=== PATIENT | female | born 1990 | race American Indian/Alaskan Native ===

== ENCOUNTER 2017-09-27 07:01 | Inpatient (IN) | payer OTHER ==
[2017-09-27 08:08] LABS: Alanine Aminotransferase 13 units/L (7-56); Albumin 4.2 g/dL (3.9-5); BUN/Creatinine Ratio 16; Blood Urea Nitrogen 11 mg/dL (7-17); Calcium 9.2 mg/dL (8.4-10.2); Hemolysis Index 4
[2017-09-27 08:21] LABS: Basophils % (Auto) 0.1 % (0.0-1.8); Eosinophils % (Auto) 0.3 % (0.0-4.3); Hematocrit 39.8 % (30.3-42.9); Hemoglobin 12.7 gm/dl (10.1-14.3); Lymphocytes # (Auto) 2.2 K/mm3 (1.2-5.4); Lymphocytes % (Auto) 16.6 % (13.4-35.0); Mean Corpuscular HGB Conc 32 % (30-34); Mean Corpuscular Volume 81 fl (79-97); Monocytes # (Auto) 0.9 K/mm3 (0.0-0.8); Monocytes % (Auto) 6.5 % (0.0-7.3); Platelet Count 269 K/mm3 (140-440); Red Blood Count 4.93 M/mm3 (3.65-5.03); Red Cell Distribution Width 14.5 % (13.2-15.2)
[2017-09-27 08:27] LABS: Mean Corpuscular Hemoglobin 26 pg (28-32)
[2017-09-27 08:51] LABS: HCG Qualitative,Urine Negative (Negative)
[2017-09-27 08:53] LABS: Bacteria,Urine 1+ /HPF (Negative); Bilirubin,Urine NEG (Negative); Blood,Urine SM (Negative); Color,Urine Yellow (Yellow); Mucus,Urine 1+ /HPF; Protein,Urine <15 mg/dL mg/dL (Negative); Urobilinogen,Urine < 2.0 mg/dL (<2.0)
[2017-09-27] MEDS ORDERED: ZOFRAN IV ONE (11:21)
[2017-09-27] MEDS ORDERED: NACL 0.9% 1000 ML 1,000 ML IV ONE ×2 (11:21→13:35)
[2017-09-27] MEDS ORDERED: TORADOL IV ONE (11:21)
[2017-09-27] MEDS ORDERED: PEPCID IV ONE (11:21)
--- NOTE | 2017-09-27 11:21 | Emergency Department Report ---
Blank Doc - Documentation Documentation: Patient is a 27-year-old female who has a history of frequent UTIs who is presenting with 2-3 days of central abdominal pain does radiate into the right lower quadrant as well as nausea. Patient does have some frequent urination no dysuria. Patient denies vaginal discharge. On focused physical exam patient does have some right lower quadrant tenderness but no rebound. Laboratory studies were reviewed and patient does have moderate leuk esterase as well as a few WBCs in her urine suggestive of urinary tract infection however because of the patient's tenderness and CT will be done as well to rule out pyelonephritis and appendicitis. Patient does have elevated white counts time.
--- NOTE | 2017-09-27 13:29 | Cat Scan Report ---
FINAL REPORT EXAM: CT ABDOMEN PELVIS W CON HISTORY: RLQ pain TECHNIQUE: Spiral CT scanning of the abdomen and pelvis after the uneventful administration of IV contrast. Multiplanar reformations. 100 mL Omnipaque IV. PRIORS: None. FINDINGS: Abdomen: Visualized lung bases grossly unremarkable. No radiopaque gallstones. Liver without significant abnormality. Spleen without significant abnormality. Pancreas without significant abnormality. Punctate calcification noted in the right kidney measuring 1-2 mm, without significant hydronephrosis. Left kidney grossly unremarkable. Adrenal glands without significant abnormality. Pelvis: Appendix is enlarged and fluid-filled measuring up to 10 mm in diameter, with wall thickening and enhancement, as well as periappendiceal fat stranding. Some wall and fold thickening in the adjacent cecum probably reactive. Bowel grossly unremarkable. Very small amount of nonspecific, free fluid in the pelvis. No discrete abscess. Abdominal aorta non-aneurysmal. Possible involuting or hemorrhagic follicle or cyst in the right ovary measuring approximately 1.6 cm. Mild levoconvex curvature of lumbar spine. IMPRESSION: 1. Findings compatible with acute appendicitis. Clinical correlation and followup suggested. 2. Punctate, nonobstructing right renal calcification. No significant right hydronephrosis. 3. Possible physiologic cystic change in the right ovary, and sequelae of ovarian follicle or cyst rupture. Dr. Dumont discussed results with PA, named Kaden Tomlin, on 27 September 2017 at approximately 1318 hours EST.
[2017-09-27] MEDS ORDERED: DILAUDID IV ONE (13:35)
--- NOTE | 2017-09-27 13:41 | Emergency Department Report ---
ED Abdominal Pain HPI - General Chief Complaint: Abdominal Pain Stated Complaint: ABDOMINAL PAIN Time Seen by Provider: 09/27/17 11:14 Source: patient Mode of arrival: Ambulatory Limitations: No Limitations - History of Present Illness Initial Comments: 27year-old female past medical history interstitial cystitis history of frequent UTIs presents with complaint of several days of periumbilical pain radiating to right lower quadrant. Some associated nausea. Patient is awake alert and oriented 3 does not appear to be in acute distress. Patient did state she had some suggestive chills. MD Complaint: abdominal pain Onset/Timin -: days(s) Location: periumbilical, RLQ Radiation: RLQ Migration to: periumbilical, RLQ Severity: moderate Severity scale (0 -10): 7 Quality: aching, sharp Consistency: intermittent Associated Symptoms: nausea, chills - Related Data LMP Date: 08/26/17 Allergies Allergy/AdvReac Type Severity Reaction Status Date / Time morphine Allergy Rash Verified 09/27/17 07:29 ED Review of Systems ROS: Stated complaint: ABDOMINAL PAIN Other details as noted in HPI Constitutional: chills. denies: fever Eyes: denies: eye pain, eye discharge, vision change ENT: denies: ear pain, throat pain Respiratory: denies: cough, shortness of breath, wheezing Cardiovascular: denies: chest pain, palpitations Endocrine: no symptoms reported Gastrointestinal: abdominal pain, nausea. denies: diarrhea Genitourinary: denies: urgency, dysuria, discharge Musculoskeletal: denies: back pain, joint swelling, arthralgia Skin: denies: rash, lesions Neurological: denies: headache, weakness, paresthesias Psychiatric: denies: anxiety, depression Hematological/Lymphatic: denies: easy bleeding, easy bruising ED Past Medical Hx - Past Medical History Additional medical history: cystitis - Social History Smoking Status: Never Smoker ED Physical Exam - General Limitations: No Limitations General appearance: alert, in no apparent distress - Head Head exam: Present: atraumatic, normocephalic - Eye Eye exam: Present: normal appearance, PERRL, EOMI - ENT ENT exam: Present: mucous membranes moist - Neck Neck exam: Present: normal inspection - Respiratory Respiratory exam: Present: normal lung sounds bilaterally. Absent: respiratory distress - Cardiovascular Cardiovascular Exam: Present: regular rate, normal rhythm. Absent: systolic murmur, diastolic murmur, rubs, gallop - GI/Abdominal GI/Abdominal exam: Present: tenderness (some periumbilical tenderness and right lower quadrant tenderness), normal bowel sounds - Extremities Exam Extremities exam: Present: normal inspection - Back Exam Back exam: Present: normal inspection - Neurological Exam Neurological exam: Present: alert, oriented X3 - Psychiatric Psychiatric exam: Present: normal affect, normal mood - Skin Skin exam: Present: warm, dry, intact, normal color. Absent: rash ED Course Vital Signs 09/27/17 09/27/17 09/27/17 07:23 11:48 12:10 Temperature 98.6 F Pulse Rate 75 Respiratory 17 20 18 Rate Blood Pressure 123/72 Blood Pressure [Right] O2 Sat by Pulse 98 Oximetry 09/27/17 09/27/17 09/27/17 15:01 15:19 15:25 Temperature 98.6 F Pulse Rate 72 Respiratory 18 18 18 Rate Blood Pressure Blood Pressure 128/70 [Right] O2 Sat by Pulse 98 99 Oximetry ED Medical Decision Making - Lab Data Result diagrams: 09/27/17 07:32 09/27/17 07:32 - Medical Decision Making A/P: Acute appendicitis 1-case discussed with surgeon for admission 2-IV fluid, nothing by mouth, Zosyn 3-patient made aware of clinical plan and is in agreement Critical care attestation.: If time is entered above; I have spent that time in minutes in the direct care of this critically ill patient, excluding procedure time. ED Disposition Clinical Impression: Acute appendicitis Qualifiers: Acute appendicitis type: unspecified acute appendicitis type Qualified Code(s) : K35.80 - Unspecified acute appendicitis Abdominal pain Qualifiers: Abdominal location: periumbilical Qualified Code(s): R10.33 - Periumbilical pain Disposition: OP ADMIT IP TO THIS HOSP Is pt being admited?: Yes Does the pt Need Aspirin: No Condition: Stable Instructions: Abdominal Pain (ED) Referrals: PRIMARY CARE, [Primary Care Provider] - 3-5 Days
[2017-09-27] MEDS ORDERED: ZOSYN/NS 4.5GM/100ML 4.5 GM/100 ML VIAL IV SCH (14:00)
[2017-09-27] MEDS ORDERED: NACL 0.9% 1000 ML 1,000 ML ONE ×2 (16:58→18:55)
[2017-09-27] MEDS ORDERED: MARCAINE 0.5% 30 ML INFILTRATI ONE (17:25)
[2017-09-27] MEDS ORDERED: XYLOCAINE 1% 20 mL ONE (17:25)
[2017-09-27] MEDS ORDERED: XYLOCAINE MPF 2% ONE (17:36)
[2017-09-27] MEDS ORDERED: DIPRIVAN 10 MG/ML IV ONE (17:36)
[2017-09-27] MEDS ORDERED: DILAUDID ONE (17:36)
[2017-09-27] MEDS ORDERED: ZEMURON IV ONE (17:36)
[2017-09-27] MEDS ORDERED: NACL 0.9% IR ONE (17:45)
[2017-09-27] MEDS ORDERED: XYLOCAINE 1% 20 mL INFILTRATI ONE (17:45)
[2017-09-27] MEDS ORDERED: MARCAINE 0.5% INFILTRATI ONE (17:45)
--- NOTE | 2017-09-27 18:07 | Anesthesia Consultation ---
Anesthesia Consult and Med Hx Date of service: 09/27/17 - Airway Anesthetic Teeth Evaluation: Good ROM Head & Neck: Adequate Mental/Hyoid Distance: Adequate Mallampati Class: Class II Intubation Access Assessment: Good - Pulmonary Exam CTA: Yes - Cardiac Exam Cardiac Exam: RRR - Pre-Operative Health Status ASA Pre-Surgery Classification: ASA2 Proposed Anesthetic Plan: General - Additional Comments Anesthesia Medical History Comments: Interstitial cystitis
--- NOTE | 2017-09-27 18:08 | Anesthesia Day of Surgery ---
Anesthesia Day of Surgery - Day of Surgery Patient Examined: Yes Patient H&P Reviewed: Yes Patient is NPO: Yes
[2017-09-27] MEDS ORDERED: BLOXIVERZ ONE (19:34)
[2017-09-27] MEDS ORDERED: ROBINUL ONE (19:34)
[2017-09-27] MEDS ORDERED: TORADOL ONE (19:34)
[2017-09-27] MEDS ORDERED: ZOFRAN ONE (19:34)
[2017-09-27] MEDS: DILAUDID IV PRN (22:43)
[2017-09-27] MEDS: D5W/0.45% NACL/KCL 20 MEQ 20 MEQ/1,000 ML BAG IV SCH (22:43)
[2017-09-28] MEDS: DILAUDID IV PRN ×4 (03:59→22:02)
[2017-09-28] MEDS: ANCEF/NS 1 GM/50 ML 1 GM/50 ML BAG IV SCH ×3 (05:47→21:27)
[2017-09-28] MEDS: D5W/0.45% NACL/KCL 20 MEQ 20 MEQ/1,000 ML BAG IV SCH ×2 (09:03→22:51)
[2017-09-28] MEDS ORDERED: ceFAZolin 1 GM in NACL 0.9% 100 ML IV SCH (10:00)
[2017-09-28] MEDS ORDERED: DIFLUCAN PO ONE (10:56)
[2017-09-28] MEDS: TORADOL IV PRN (13:42)
[2017-09-28] MEDS: MILK OF MAGNESIA PO PRN (18:02)
[2017-09-29] MEDS: DILAUDID IV PRN ×3 (00:11→12:53)
[2017-09-29] MEDS: MILK OF MAGNESIA PO PRN (00:16)
[2017-09-29] MEDS: TORADOL IV PRN (03:44)
[2017-09-29] MEDS: D5W/0.45% NACL/KCL 20 MEQ 20 MEQ/1,000 ML BAG IV SCH (03:53)
[2017-09-29] MEDS: ANCEF/NS 1 GM/50 ML 1 GM/50 ML BAG IV SCH (06:11)
--- NOTE | 2017-09-29 10:38 | Operative Report ---
PREOPERATIVE DIAGNOSIS: Rule out acute appendicitis. POSTOPERATIVE DIAGNOSIS: Acute simple appendicitis. PROCEDURE: Appendectomy. SURGEON: Gómez Boucher MD ANESTHESIA: General endotracheal. INDICATIONS: The patient is a 27-year-old female who presented to the Emergency Room, complaining of a 32-hour history of nausea and no vomiting, periumbilical pain localizing to the right lower quadrant. The patient did not present where any significant past medical history of cystitis in the past. Her preoperative evaluation consisted of a CT scan of the abdomen and pelvis, which was interpreted by the radiologist as a possible acute appendicitis. Physical exam, the patient was tender in the right lower quadrant with rebound, some voluntary guarding. The WBC was 13.5, hemoglobin and hematocrit were normal. DESCRIPTION OF PROCEDURE: In view of the findings, the patient was taken to the operating room and placed in supine position on the operating table. Following proper induction, the patient was placed under general anesthesia, prepped and draped in the usual sterile fashion. The abdomen was entered through the right lower quadrant Kyle-Nestor muscle splitting incision. Upon entering the abdominal cavity, small amounts of murky fluid was found in the right lower quadrant. This fluid was suctioned out. Digital exploration was performed. The appendix was found in its normal position. It was brought out through the incision. The appendix appeared to be inflamed ____ no evidence of perforation. The mesoappendix was serially clamped, transected and tied down to the appendiceal base. The appendiceal base was ligated with 0 chromic sutures x 2 and the appendix was transected above the thigh and the specimen was sent out to pathology. The appendiceal stump was cauterized. The area was irrigated with copious amount of normal saline. The appendix was returned back to its normal position. The wound was then closed with a 2-0 Vicryl for the perineal and muscle layer. The subcutaneous tissue was approximated and the skin was closed with 3-0 Monocryl in a subcuticular fashion. Steri-Strip was applied to complete the procedure. Estimated blood loss was minimal. There were no complications. The patient tolerated the procedure well. Following the reversal of anesthesia, the patient was transferred to the recovery room in stable condition. JOB# [id number] LIDA/WILIAM
[2017-09-29] MEDS ORDERED: PEPCID PO SCH (12:00)
[2017-09-29 14:41] VITALS: BP 109/64
--- NOTE | 2017-09-29 22:17 | Discharge Summary ---
ADMITTING DIAGNOSIS: Rule out acute appendicitis. DISCHARGE DIAGNOSIS: Acute simple appendicitis. ADMITTING PHYSICIAN: Gómez Boucher MD HISTORY: This patient is a 27-year-old female who presented to the Emergency Room on 09/27/2017 complaining of 32-hour history of abdominal pain, nausea, but no vomiting. On presentation, a CT scan of the abdomen was obtained, which was read as suggestive of an acute appendicitis. On physical exam, the patient appeared to be awake and alert. Her vital signs were essentially within normal limits. Her WBC on admission was 13.5 with normal hemoglobin and hematocrit. Her electrolytes were essentially within normal limits. Physical exam showed that the patient had a right lower quadrant pain with rebound and voluntary guarding. No masses were appreciated on physical exam. In view of the clinical finding, the patient was consented for appendectomy and taken to the operating room where an appendectomy was performed without complications. The appendix appeared to be acutely inflamed and a specimen was sent to pathology for final diagnosis. The patient tolerated the procedure well. Hospital day #1, the patient was found to be afebrile with vital signs that was stable. She was awake and alert, only complaining of incisional pain. She was placed on a clear liquid diet and patient started ambulating. On hospital day #2, the patient was again found to be awake and alert with stable vital signs. She was advanced to a soft diet, which she tolerated well. On 09/29/2017, the patient was discharged home in stable condition to be followed as an outpatient. JOB# [id number] LIDA/WILIAM
== END 2017-09-29 15:00 | disposition home or self-care (01) | DRG 343 ==
LOC: ED 07:01 → 3B-SURG 15:48
PROVIDERS: ADMIT Plastic Surgery; ATTEND Specialist
PROC: 0DTJ0ZZ Resection of Appendix, Open Approach (ICD-10-PCS; principal; 2017-09-29)
DX: K35.80 Unspecified acute appendicitis (principal); Z87.440 Personal history of urinary (tract) infections; Z88.5 Allergy status to narcotic agent
CPT/HCPCS: 36415; 74177; 80053; 81001; 81025; 82140; 85025; 86850; 86900; 86901; 88304; J0690; J1170; J1885; J2405; J2704; J2710; J7030; Q9967

== ENCOUNTER 2017-10-02 04:26 | Emergency (ER) | payer OTHER ==
[2017-10-02 05:08] LABS: Basophils % (Auto) 0.3 % (0.0-1.8); Eosinophils # (Auto) 0.1 K/mm3 (0.0-0.4); Eosinophils % (Auto) 0.7 % (0.0-4.3); Hematocrit 35.7 % (30.3-42.9); Hemoglobin 12.1 gm/dl (10.1-14.3); Lymphocytes # (Auto) 2.1 K/mm3 (1.2-5.4); Lymphocytes % (Auto) 21.2 % (13.4-35.0); Mean Corpuscular HGB Conc 34 % (30-34); Mean Corpuscular Hemoglobin 27 pg (28-32); Mean Corpuscular Volume 79 fl (79-97); Monocytes # (Auto) 0.7 K/mm3 (0.0-0.8); Monocytes % (Auto) 7.1 % (0.0-7.3); Platelet Count 311 K/mm3 (140-440); Red Cell Distribution Width 14.1 % (13.2-15.2)
[2017-10-02 05:24] LABS: Bacteria,Urine 2+ /HPF (Negative); Bilirubin,Urine NEG (Negative); Blood,Urine SM (Negative); Color,Urine Yellow (Yellow); HCG Qualitative,Urine Negative (Negative); Mucus,Urine FEW /HPF; Protein,Urine <15 mg/dL mg/dL (Negative); Urobilinogen,Urine < 2.0 mg/dL (<2.0)
[2017-10-02 05:30] LABS: Alanine Aminotransferase 21 units/L (7-56); Albumin 3.9 g/dL (3.9-5); BUN/Creatinine Ratio 16; Blood Urea Nitrogen 11 mg/dL (7-17); Hemolysis Index 4
[2017-10-02] MEDS ORDERED: ZOFRAN IV ONE (06:37)
[2017-10-02] MEDS ORDERED: TORADOL IV ONE (06:37)
[2017-10-02] MEDS ORDERED: NACL 0.9% 1000 ML 1,000 ML IV ONE (06:37)
[2017-10-02] MEDS ORDERED: PEPCID IV ONE (06:37)
--- NOTE | 2017-10-02 07:39 | Emergency Department Report ---
ED Abdominal Pain HPI - General Chief Complaint: Chest Pain Stated Complaint: ABD PAIN, CHEST PAIN Time Seen by Provider: 10/02/17 06:14 Source: patient Mode of arrival: Ambulatory Limitations: No Limitations - History of Present Illness Initial Comments: 27-year-old female status post appendectomy September 27 (5 days ago) presents also complaining of abdominal pain worsening yesterday. Patient complains of supraumbilical abdominal pain that radiates to her chest. Pain is intermittent , sharp and aching, rated nonspecific in intensity. Worse with palpation. Patient denies nausea, vomiting, or fever. Patient does have some mild shortness of breath when the pain is intense and radiates upward to her chest and throat. Currently taking Tylenol 3 for pain. She also has pain at the right lower quadrant area of surgery. Patient has been having infrequent bowel movements since surgery and last had a small amount of 2 days ago taking magnesium citrate. She denies dysuria. Surgeon Dr Gómez Chicas Severity scale (0 -10): 6 - Related Data Previous Rx's Medication Instructions Recorded Last Taken Type Famotidine [Pepcid] 20 mg PO BID #20 tablet 10/02/17 Unknown Rx Allergies Allergy/AdvReac Type Severity Reaction Status Date / Time hydromorphone [From Dilaudid] Allergy Rash Verified 10/02/17 04:42 morphine Allergy Rash Verified 10/02/17 04:42 ED Review of Systems ROS: Stated complaint: ABD PAIN, CHEST PAIN Other details as noted in HPI Comment: All other systems reviewed and negative ED Past Medical Hx - Past Medical History Hx Congestive Heart Failure: No Hx Diabetes: No Hx Asthma: No Hx COPD: No Additional medical history: cystitis - Surgical History Hx Appendectomy: Yes (09/2017) - Social History Smoking Status: Never Smoker Substance Use Type: Alcohol - Medications Home Medications: Home Medications Medication Instructions Recorded Confirmed Last Taken Type Famotidine [Pepcid] 20 mg PO BID #20 tablet 10/02/17 Unknown Rx ED Physical Exam - General Limitations: No Limitations - Other Other exam information: General: No limitations, patient is alert in no acute distress Head exam: Atraumatic, normocephalic Eyes exam: Normal appearance, pupils equal reactive to light, extraocular movements intact ENT: Moist mucous membrane, normal oropharynx Neck exam: Normal inspection, full range of motion, no meningismus nontender Respiratory exam: Clear to auscultation bilateral, no wheezes, rales, crackles, chest wall nontender Cardiovascular: Normal rate and rhythm, normal heart sounds Abdomen: Soft, nondistended, right lower quadrant stations area previous surgery , mild tenderness. Supraumbilical and epigastric tenderness. Extremity: Full range of motion normal inspection no deformity Back: Normal Inspection, full range of motion, no tenderness Neurologic: Alert, oriented x3, cranial nerves intact, no motor or sensory deficit Psychiatric: normal affect, normal mood Skin: Warm, dry, intact ED Course Vital Signs 10/02/17 10/02/17 10/02/17 04:26 04:42 05:43 Temperature 98.9 F 98.9 F Pulse Rate 73 67 Respiratory 18 16 18 Rate Blood Pressure 128/59 128/59 O2 Sat by Pulse 98 97 99 Oximetry 10/02/17 10/02/17 10/02/17 05:59 06:00 06:16 Temperature Pulse Rate Respiratory Rate Blood Pressure 110/66 O2 Sat by Pulse 76 L 98 99 Oximetry 10/02/17 10/02/17 10/02/17 06:30 06:46 07:00 Temperature Pulse Rate Respiratory Rate Blood Pressure 110/54 O2 Sat by Pulse 99 100 100 Oximetry 10/02/17 10/02/17 10/02/17 07:04 07:16 07:30 Temperature Pulse Rate Respiratory 18 Rate Blood Pressure O2 Sat by Pulse 100 100 Oximetry 10/02/17 10/02/17 10/02/17 07:46 08:00 08:38 Temperature 98.4 F Pulse Rate Respiratory 16 Rate Blood Pressure 103/53 O2 Sat by Pulse 100 99 99 Oximetry - Reevaluation(s) Reevaluation #1: 10/02/17 10:03 pt still having pain after toradol but limited in the meds she can take due to allergies. No additional IV pain medication given. - Consultations Consultation #1: 10/02/17 08:29 case d/w Dr Chicas. Informed of pt sx, labs, and pending ct a/p. If study neg july/u. ED Medical Decision Making - Lab Data Result diagrams: 10/02/17 04:51 10/02/17 04:51 Lab Results 10/02/17 10/02/17 10/02/17 Range/Units 04:45 04:51 04:51 WBC 10.2 (4.5-11.0) K/mm3 RBC 4.50 (3.65-5.03) M/mm3 Hgb 12.1 (10.1-14.3) gm/dl Hct 35.7 (30.3-42.9) % MCV 79 (79-97) fl MCH 27 L (28-32) pg MCHC 34 (30-34) % RDW 14.1 (13.2-15.2) % Plt Count 311 (140-440) K/mm3 Lymph % (Auto) 21.2 (13.4-35.0) % [place] % (Auto) 7.1 (0.0-7.3) % Eos % (Auto) 0.7 (0.0-4.3) % Baso % (Auto) 0.3 (0.0-1.8) % Lymph # 2.1 (1.2-5.4) K/mm3 [place] # 0.7 (0.0-0.8) K/mm3 Eos # 0.1 (0.0-0.4) K/mm3 Baso # 0.0 (0.0-0.1) K/mm3 Seg Neutrophils % 70.7 H (40.0-70.0) % Seg Neutrophils # 7.2 (1.8-7.7) K/mm3 Sodium 138 (137-145) mmol/L Potassium 4.0 (3.6-5.0) mmol/L Chloride 99.8 (98-107) mmol/L Carbon Dioxide 26 (22-30) mmol/L Anion Gap 16 mmol/L BUN 11 (7-17) mg/dL Creatinine 0.7 (0.7-1.2) mg/dL Estimated GFR > 60 ml/min BUN/Creatinine Ratio 16 % Glucose 93 (65-100) mg/dL Calcium 9.0 (8.4-10.2) mg/dL Total Bilirubin < 0.20 (0.1-1.2) mg/dL AST 21 (5-40) units/L ALT 21 (7-56) units/L Alkaline Phosphatase 70 (35-129) units/L Troponin T < 0.010 (0.00-0.029) ng/mL Total Protein 6.5 (6.3-8.2) g/dL Albumin 3.9 (3.9-5) g/dL Albumin/Globulin Ratio 1.5 % Urine Color Yellow (Yellow) Urine Turbidity Clear (Clear) Urine pH 6.0 (5.0-7.0) Ur Specific [place] 1.015 (1.003-1.030) Urine Protein <15 mg/dl (Negative) mg/dL Urine Glucose (UA) Neg (Negative) mg/dL Urine Ketones Neg (Negative) mg/dL Urine Blood Sm (Negative) Urine Nitrite Neg (Negative) Urine Bilirubin Neg (Negative) Urine Urobilinogen < 2.0 (<2.0) mg/dL Ur Leukocyte Esterase Mod (Negative) Urine WBC (Auto) 7.0 H (0.0-6.0) /HPF Urine RBC (Auto) 3.0 (0.0-6.0) /HPF U Epithel Cells (Auto) 8.0 (0-13.0) /HPF Urine Bacteria (Auto) 2+ (Negative) /HPF Urine Mucus Few /HPF Urine HCG, Qual Negative (Negative) - EKG Data -: EKG Interpreted by Hi EKG shows normal: sinus rhythm, axis (qrs 57), QRS complexes (qrsd 86), ST-T waves (no stemi/t inv) Rate: bradycardia - EKG Data When compared to previous EKG there are: previous EKG unavailable - Radiology Data Radiology results: report reviewed CT ABDOMEN PELVIS WITH CONTRAST: HISTORY: Right lower quadrant abdominal pain, recent appendectomy. COMPARISON: 09/27/17. TECHNIQUE: Helical CT in 1.25mm intervals following IV contrast. Sagittal and coronal reconstructions. FINDINGS: Lung bases: Normal. Liver: Normal. Biliary system: Normal. Pancreas: Normal. Spleen: Normal. Kidneys/ureters/bladder: Normal. Adrenal glands: Normal. Aorta: Normal. Intestines: Within normal limits. Mild fecal retention is noted in the proximal colon. No obstruction or advanced inflammatory changes. Appendix: The base of the appendix is still visualized and contains a small amount of oral contrast. There is trace fluid and fat stranding in the right lower quadrant which could be secondary to recent surgical changes. No abscess or free air is identified. Pelvic viscera: The uterus and left adnexa are unremarkable. 1.8 cm peripheral enhancing cyst in the right ovary is noted. Ascites: Trace right lower quadrant ascites. Adenopathy: None. Musculoskeletal: Normal. IMPRESSION: Recent appendectomy changes are suspected in given by history. The base of the appendix is still identified. There is trace fluid and fat stranding in the right lower quadrant which probably represents recent surgical changes. No postoperative abscess is appreciated. Right ovarian cyst, not significantly changed. - Medical Decision Making CT suggestive of post operative/surgical changes as well as some fecal retention. This was discussed with Dr. Boucher prior to discharge. Patient has Mag citrate and MiraLAX at home as well as Tylenol 3. Pepcid will be added. n mild urinary leukocytosis and WBC in urine, patient states she is already on Keflex. - Differential Diagnosis gastritis, constipation, postoperative pain, postop infection Critical Care Time: No Critical care attestation.: If time is entered above; I have spent that time in minutes in the direct care of this critically ill patient, excluding procedure time. ED Disposition Clinical Impression: Post-op pain, Fecal retention, UTI (urinary tract infection) Disposition: - TO HOME OR SELFCARE Is pt being admited?: No Does the pt Need Aspirin: No Condition: Stable Instructions: Acute Abdominal Pain (ED), Constipation (ED), Urinary Tract Infection in Women (ED) Additional Instructions: Continue your MiraLAX and mag citrate as needed for constipation. Continue Tylenol No. 3 as needed for pain but please note this is a narcotic and can worsen constipation. Pepcid has been added to your medications given your pain at the top of the stomach radiating to your chest. Follow back up with your surgeon. Return is symptoms worsen as indicated by your discharge instructions. Continue your antibiotic as well. Prescriptions: Famotidine [Pepcid] 20 mg PO BID #20 tablet Referrals: GÓMEZ BOUCHER MD [Staff Physician] - 2-3 Days Time of Disposition: 10:06
[2017-10-02 08:46] VITALS: BP 103/53
--- NOTE | 2017-10-02 09:31 | Cat Scan Report ---
CT ABDOMEN PELVIS WITH CONTRAST: HISTORY: Right lower quadrant abdominal pain, recent appendectomy. COMPARISON: 09/27/17. TECHNIQUE: Helical CT in 1.25mm intervals following IV contrast. Sagittal and coronal reconstructions. FINDINGS: Lung bases: Normal. Liver: Normal. Biliary system: Normal. Pancreas: Normal. Spleen: Normal. Kidneys/ureters/bladder: Normal. Adrenal glands: Normal. Aorta: Normal. Intestines: Within normal limits. Mild fecal retention is noted in the proximal colon. No obstruction or advanced inflammatory changes. Appendix: The base of the appendix is still visualized and contains a small amount of oral contrast. There is trace fluid and fat stranding in the right lower quadrant which could be secondary to recent surgical changes. No abscess or free air is identified. Pelvic viscera: The uterus and left adnexa are unremarkable. 1.8 cm peripheral enhancing cyst in the right ovary is noted. Ascites: Trace right lower quadrant ascites. Adenopathy: None. Musculoskeletal: Normal. IMPRESSION: Recent appendectomy changes are suspected in given by history. The base of the appendix is still identified. There is trace fluid and fat stranding in the right lower quadrant which probably represents recent surgical changes. No postoperative abscess is appreciated. Right ovarian cyst, not significantly changed.
[2017-10-02] MEDS ORDERED: MACROBID PO ONE (10:07)
== END 2017-10-02 10:32 | disposition home or self-care (01) ==
LOC: ED 04:26
DX: N39.0 Urinary tract infection, site not specified (principal); K59.00 Constipation, unspecified; G89.18 Other acute postprocedural pain; Z90.89 Acquired absence of other organs; Z88.5 Allergy status to narcotic agent
CPT/HCPCS: 36415; 74177; 80053; 81001; 81025; 84484; 85025; 93005; 93010; 96374; 96375; 99284; J1885; J2405; J7030; Q9967